=== PATIENT | female | born 1995 | race Caucasian/White ===

== ENCOUNTER 2017-03-18 16:45 | Emergency (ER) | payer BC ==
[2017-03-18] MEDS ORDERED: SODIUM CHLORIDE 1,000 ML IV STA (17:19)
[2017-03-18] MEDS ORDERED: ONDANSETRON 4 MG/2 ML VIAL IVPB ONE (17:19)
--- NOTE | 2017-03-18 17:28 | PDOC ---
History of Present Illness - General History Source: Patient, Old Records Exam Limitations: No Limitations - History of Present Illness Initial Comments: 03/18/17 18:14 The patient is a 21 year old female with a past medical history of epilepsy who presents to the emergency department today for further evaluation of epigastric pain since this afternoon. The patient describes her pain as sharp, stabbing in sensation mostly right sided and associated with vomiting and diarrhea. She reports 3 episodes of vomiting and 2 episodes of diarrhea. She denies any urinary difficulties She states that her LMP was 2-3 weeks ago. She denies a history of ovarian cyst, , or STDs. <Zeb Little - Last Filed: 03/18/17 18:35> - History of Present Illness Initial Comments: 03/18/17 18:39 Is ago exam: Alert oriented well-developed well-nourished no acute distress at rest, cheerful and cooperative Afebrile, vital signs normal No pallor or icterus. PERRLA, ENT clear Neck supple without bruit mass or nodes Chest clear with full breath sounds throughout bilaterally. No wheezes rales or rhonchi CV regular without murmur rub or gallop pulses full and symmetric no JVD or edema no bruits Abdomen nondistended. Bowel sounds are present and normal in character. Abdomen is soft and there is no organomegaly. However, there is mild to moderate tenderness that is diffuse over the entire right abdomen including right upper quadrant right mid abdomen and right lower quadrant. There is guarding in the right lower quadrant, equivocal rebound, and referred rebound. <Lester Norman - Last Filed: 03/20/17 21:02> - General Chief Complaint: Vomiting/Diarrhea Stated Complaint: VOMITNG & DIARRHEA Time Seen by Provider: 03/18/17 17:18 Past History <Zeb Little - Last Filed: 03/18/17 18:35> - Past Medical History Psychiatric Problems: Yes (ANXIETY) Seizures: Yes - Immunization History Immunization Up to Date: Yes - Suicide/Smoking/Psychosocial Hx Smoking Status: No Smoking History: Never smoked Years of Tobacco Use: 0 Have you smoked in the past 12 months: No Number of Cigarettes Smoked Daily: 0 Hx Alcohol Use: No Drug/Substance Use Hx: No Substance Use Type: None <Lester Norman - Last Filed: 03/20/17 21:02> - Past Medical History Allergies/Adverse Reactions: Allergies Allergy/AdvReac Type Severity Reaction Status Date / Time No Known Allergies Allergy Verified 07/12/14 23:54 Home Medications: Ambulatory Orders Lamotrigine [Lamictal] 200 mg PO DAILY 07/12/14 Norgestrel-Ethinyl Estradiol [Cryselle-28 Tablet] 1 each PO DAILY 07/12/14 Sertraline HCl [Zoloft] 200 mg PO HS 07/12/14 Clonazepam [Klonopin] 1 mg PO DAILY PRN 03/18/17 Diclofenac Sodium 50 mg PO TID PRN 03/18/17 Melatonin PO HS 03/18/17 Ondansetron [Zofran Odt -] 4 mg SL TID PRN #10 od.tablet 03/18/17 Review of Systems - Review of Systems Able to Perform ROS?: Yes Comments:: 03/18/17 18:14 CONSTITUTIONAL: Absent: fever, no chills, no fatigue EYES: Absent: visual changes ENT: Absent: ear pain, no sore throat CARDIOVASCULAR: Absent: chest pain, no palpitations RESPIRATORY: Absent: cough, no SOB GI: (+) Abdominal pain, nausea, vomiting, diarrhea Absent: constipation GENITOURINARY: Absent: dysuria, no frequency, no hematuria MUSCULOSKELETAL: Absent: back pain, no arthralgia, no myalgia SKIN: Absent: rash <Zeb Little - Last Filed: 03/18/17 18:35> *Physical Exam - Physical Exam Comments: 03/18/17 18:35 GENERAL: Well-appearing, well-nourished. No apparent distress. HEENT: Normocephalic, atraumatic. PERRL, EOM intact. CARDIOVASCULAR: Normal S1, S2. Regular rate and rhythm. PULMONARY: Clear to auscultation bilaterally. ABDOMEN: Soft, non-distended,(+)diffuse abdominal tenderness on palpation EXTREMITIES: Normal ROM in all four extremities. No gross deformities. SKIN: Warm, dry. No rash NEUROLOGICAL: No focal neurological deficits <Zeb Little - Last Filed: 03/18/17 18:35> ED Treatment Course - LABORATORY CBC & Chemistry Diagram: 03/18/17 19:05 03/18/17 19:05 <Lester Norman - Last Filed: 03/20/17 21:02> *DC/Admit/Observation/Transfer - Attestations Scribe Attestion: 03/18/17 18:14 Documentation prepared by Zeb Little, acting as medical sonographer for Lester Norman MD. <Zeb Little - Last Filed: 03/18/17 18:35> <Lester Norman - Last Filed: 03/20/17 21:02> Diagnosis at time of Disposition: Acute gastroenteritis - Discharge Dispostion Disposition: HOME Condition at time of disposition: Stable - Prescriptions Prescriptions: Ondansetron [Zofran Odt -] 4 mg SL TID PRN #10 od.tablet PRN Reason: Nausea And/Or Vomiting - Patient Instructions Printed Discharge Instructions: Viral Gastroenteritis Additional Instructions: Light diet; advance diet cautiously Zofran ODT 4 mg up to 3 times a day as needed for nausea/vomiting imodium 2mg after loose stool up to twice a day as discussed Return if you have persistent vomiting or increased abdominal pain Follow-up with your general doctor within the next 3-4 days
[2017-03-18 18:40] VITALS: BP 115/66; PULSE 75; TEMP 98.1; BMI 29.7
[2017-03-18] MEDS ORDERED: ONDANSETRON 4 MG/2 ML VIAL ONE (18:47)
[2017-03-18 19:22] LABS: HEMATOCRIT 40.5 % (32.4-45.2); HEMOGLOBIN 13.1 GM/dl (10.7-15.3); MCH 25.8 pg (25.7-33.7); MCHC 32.4 g/dl (32.0-36.0); MEAN CELL VOLUME 79.5 fl (80-96); MEAN PLT VOLUME 8.7 fl (7.5-11.1); PLATELET COUNT 270 K/MM3 (134-434); RBC 5.09 M/mm3 (3.60-5.2); RDW 13.8 % (11.6-15.6); WHITE BLOOD COUNT 7.8 K/mm3 (4.0-10.8)
[2017-03-18 19:32] LABS: ALBUMIN 4.4 g/dl (3.5-5.0); ALK PHOS 61 U/L (32-92); ANION GAP 8 (8-16); BILIRUBIN,TOTAL 0.4 mg/dl (0.2-1.0); BLOOD UREA NITROGEN 17 mg/dl (7-18); CALCIUM 9.5 mg/dl (8.4-10.2); CHLORIDE 107 mmol/L (98-107); CO2 21 mmol/L (22-28); CREATININE 0.7 mg/dl (0.6-1.3); GLUCOSE,RANDOM 107 mg/dl (74-106); POTASSIUM 4.1 mmol/L (3.5-5.1); SGOT/AST 22 U/L (10-42); SGPT/ALT 16 U/L (10-40); SODIUM 136 mmol/L (136-145); TOT PROT 7.6 g/dl (6.4-8.3)
[2017-03-18 19:38] LABS: PH,URINE 5.5 (4.5-8); URINE APPEARANCE Clear; URINE BILIRUBIN 1+ (NEGATIVE); URINE BLOOD Negative (NEGATIVE); URINE GLUCOSE (UA) Negative (NEGATIVE); URINE KETONE 2+ (NEGATIVE); URINE NITRITE Negative (NEGATIVE); URINE PROTEIN Trace (NEGATIVE); URINE UROBILINOGEN 0.2 (0.2-1.0)
[2017-03-18 19:41] LABS: URINE COLOR YELLOW
[2017-03-18 20:23] LABS: HCG,QUALITATIVE URINE NEGATIVE
--- NOTE | 2017-03-18 21:35 | PDOC ---
*Physical Exam - Vital Signs Last Vital Signs Temp Pulse Resp BP Pulse Ox 98.1 F 75 16 115/66 96 03/18/17 17:07 03/18/17 17:07 03/18/17 17:07 03/18/17 17:07 03/18/17 17:07 ED Treatment Course - LABORATORY CBC & Chemistry Diagram: 03/18/17 19:05 03/18/17 19:05 - ADDITIONAL ORDERS Additional order review: Laboratory Results 03/18/17 03/18/17 19:20 19:05 Sodium 136 Potassium 4.1 Chloride 107 Carbon Dioxide 21 L Anion Gap 8 BUN 17 Creatinine 0.7 Creat Clearance w eGFR > 60 Random Glucose 107 H Calcium 9.5 Total Bilirubin 0.4 AST 22 ALT 16 D Alkaline Phosphatase 61 Total Protein 7.6 Albumin 4.4 Urine Color Yellow Urine Appearance Clear Urine pH 5.5 Ur Specific [place] >= 1.030 H Urine Protein Trace Urine Glucose (UA) Negative Urine Ketones 2+ H Urine Blood Negative Urine Nitrite Negative Urine Bilirubin 1+ H Urine Urobilinogen 0.2 Ur Leukocyte Esterase Negative Urine HCG, Qual Negative 03/18/17 19:05 RBC 5.09 MCV 79.5 L MCHC 32.4 RDW 13.8 D MPV 8.7 Neutrophils % Box Truck Owner Operator Lymphocytes % Box Truck Owner Operator Monocytes % Box Truck Owner Operator Eosinophils % Box Truck Owner Operator Basophils % Box Truck Owner Operator - Medications Given in the ED: ED Medications Discontinued Medications Generic Name Dose Route Start Last Admin Trade Name Freq PRN Reason Stop Dose Admin Sodium Chloride 1,000 mls @ 1,000 mls/hr 03/18/17 17:19 03/18/17 19:05 Normal Saline - IV 03/18/17 18:18 1,000 mls/hr ASDIR STA Administration Ondansetron HCl 4 mg 03/18/17 17:19 03/18/17 19:05 Zofran Injection IVPB 03/18/17 17:20 4 mg ONCE ONE Administration Medical Decision Making - Medical Decision Making Care of this patient received from Dr. Gutierrez. New Abdominal/pelvic CT with contrast (oral and IV) performed evaluate for acute appendicitis in light of patient's right-sided tenderness. No evidence of SBO or acute appendicitis seen on CT as per preliminary results by Imaging process control engineer. Results discussed with the patient. On exam, the patient still has very mild tenderness on the right mid/lower quadrant of her abdomen; no further peritoneal signs present. Bowel sounds are hyperactive She is still having occasional intermittent sharp, cramping type pain throughout the abdomen. Patient will be given 4 mg of Imodium now for diarrhea (patient had 2 loose stools while in the ER; no further vomiting occurred while in the ER). She will be discharged with instructions to advance diet cautiously. She can also use [id number] Imodium 2 mg up to 2 times a day. [ Lowered dose of Imodium because of patient's Lamictal/Klonopin prn use] Zofran ODT 4 mg to be used up to 3 times a day prescribed and sent to her pharmacy Should return to the ER if she has persistent vomiting or increasing abdominal pain/fever *DC/Admit/Observation/Transfer Diagnosis at time of Disposition: Acute gastroenteritis - Discharge Dispostion Disposition: HOME Condition at time of disposition: Stable - Prescriptions Prescriptions: Ondansetron [Zofran Odt -] 4 mg SL TID PRN #10 od.tablet PRN Reason: Nausea And/Or Vomiting - Referrals - Patient Instructions Printed Discharge Instructions: Viral Gastroenteritis Additional Instructions: Light diet; advance diet cautiously Zofran ODT 4 mg up to 3 times a day as needed for nausea/vomiting imodium 2mg after loose stool up to twice a day as discussed Return if you have persistent vomiting or increased abdominal pain Follow-up with your general doctor within the next 3-4 days - Post Discharge Activity
[2017-03-18 21:42] LABS: PLATELET ESTIMATE ADEQUATE
[2017-03-18] MEDS ORDERED: KETOROLAC TROMETHAMINE 30 MG/1 ML VIAL IVPUSH ONE (22:54)
[2017-03-18] MEDS ORDERED: KETOROLAC TROMETHAMINE 30 MG/1 ML VIAL ONE (22:55)
[2017-03-18] MEDS ORDERED: LOPERAMIDE HCL 2 MG CAPSULE PO ONE (23:34)
[2017-03-18] MEDS ORDERED: LOPERAMIDE HCL 2 MG CAPSULE ONE ×2 (23:45)
== END 2017-03-18 23:50 | disposition home or self-care (01) ==
LOC: FER 16:45
PROC: 3E033GC Introduction of Other Therapeutic Substance into Peripheral Vein, Percutaneous Approach (ICD-10-PCS; principal; 2017-03-18)
PROC: 3E0333Z Introduction of Anti-inflammatory into Peripheral Vein, Percutaneous Approach (ICD-10-PCS; 2017-03-18)
PROC: 3E0337Z Introduction of Electrolytic and Water Balance Substance into Peripheral Vein, Percutaneous Approach (ICD-10-PCS; 2017-03-18)
DX: K52.9 Noninfective gastroenteritis and colitis, unspecified (principal)
CPT/HCPCS: 36415; 74177-TC; 80053; 81003; 84703; 85025; 99281-25

== ENCOUNTER 2019-04-23 18:15 | Emergency (ER) | payer BC ==
[2019-04-23 18:33] VITALS: BP 118/76; PULSE 80; TEMP 98.5; BMI 28.1
[2019-04-23] MEDS ORDERED: SODIUM CHLORIDE 0.9% 500 ML INFUS.BAG IV ONE (19:23)
[2019-04-23] MEDS ORDERED: ACETAMINOPHEN 325 MG TABLET (FP) PO ONE (19:23)
--- NOTE | 2019-04-23 20:01 | PDOC ---
Documentation entered by Sarah White SCRIBE, acting as scribe for Ingrid Titus MD. Ingrid Titus MD: This documentation has been prepared by the Christopher dinh Xhesika, SCRIBE, under my direction and personally reviewed by me in its entirety. I confirm that the documentation accurately reflects all work, treatment, procedures, and medical decision making performed by me. History of Present Illness - General Chief Complaint: Seizure Stated Complaint: SEIZURE AT WORK AROUND 5 PM Time Seen by Provider: 04/23/19 19:22 History Source: Patient Exam Limitations: No Limitations - History of Present Illness Initial Comments: 04/23/19 19:32 HPI The patient is a 23 year old female with a significant PMH of epilepsy ( complaint with her lamictal- has not had a seizure in 4 years), anxiety, depression and anemia who presents to the ED with R sided headache and dizziness s/p seizure at 5pm. The patient states she was at work, sitting at her desk, went to the backroom, felt confused and glitchy after the event. Pt does not recall the incident but video footage at her job shows the patient fell off the table, hit her head and had generalized tonic clonic seizure activity for approximately 3 minutes, then was confused/postictal x 2 minutes before coming to consciousness. she also c/o left knee pain with hyperextension , but able to ambulate. also has mild pain to the right lateral thigh with overlying bruising, but able to walk. Pt states she did not eat or drink today, only coffee and has been endorsing family stressors (with her adopted sister meeting her biological family this week via phone). The patient reports 2-3 days of lower abdominal pain, with her LMP approx 2 weeks ago. Pt states she has an IUD and has regular menses that last 1 week. Denies fever, chills, chest pain, SOB, palpitation, weakness, N, V, D, bladder and bowel problems, focal weakness/paresthesias, leg swelling/pain, rash, gait instability. No sick contacts or travel. No new changes in medications. No suspicious food intake Allergies: None PSH: none PMH: anxiety, depression, anemia, epilepsy Social history: Lives with family. No tobacco, ETOH or drug use. Meds: as documented in EMR Family history: noncontributory ROS: GENERAL/CONSTITUTIONAL: No fever or chills. No weakness. no sweats. HEAD, EYES, EARS, NOSE AND THROAT: No change in vision or hearing. No ear pain or discharge. No sore throat or mouth pain. No difficulty swallowing. +nasal congestion. CARDIOVASCULAR: No chest pain or palpitations, syncope or edema. RESPIRATORY: No SOB, cough GASTROINTESTINAL No nausea/vomiting. No diarrhea or constipation. GENITOURINARY: No hematuria, dysuria, frequency, urgency or other changes. MUSCULOSKELETAL: +thigh pain and bruising, +knee pain. No decreased range of motion. No neck or back pain. SKIN: No rash or lesions. No wounds. +bruising. NEUROLOGIC: alert and oriented appropriately. + Right sided headache. + dizziness. No AMS, lethargy, or change in strength/sensation. No gait instability. HEMATOLOGIC/LYMPHATIC: +anemia, no easy bruising/bleeding, or history of blood clots. No swollen lymph nodes ALLERGIC/IMMUNOLOGIC: No allergies PSYCH: no anxiety/depression All other systems reviewed and negative, or as documented in HPI. Physical Exam: General: Well appearing, awake and alert, NAD. HEENT: NCAT, PERRL, EOMI, clear conjunctiva, anicteric, moist mucous membranes , clear oropharynx, no oral lesions.. dentition intact. normal phonation. Neck: neck supple, FROM, no midline C spine tenderness Resp: CTAB, normal and even respirations, no respiratory distress CVS: RRR, no murmurs, 2+ peripheral pulses throughout, no peripheral edema Abdomen: soft, NTND, no rebound or guarding. no charles's and neg mcburney's point tenderness. Back: nontender, normal inspection and ROM] MSK: no edema, GEORGES x4, ROM intact. No clubbing or cyanosis. normal bulk and tone. Extremities: no calf tenderness. +left anterior knee TTP, no joint laxity, no palp effusion, FROM. +mild ttp to the right anterolateral thigh, with overlying mild ecchymosis. Neuro: alert, oriented appropriately; no focal neurologic deficits, 5/5 lan/wan engineer strength b/l, 5/5 prox and distal strength, SILT in all extrem. crosses legs, gait stable. speech clear. Skin: warm and well perfused, cap refill <2 sec, normal color, +mild ecchymosis to the right anterolateral thigh. 04/23/19 20:01 04/23/19 20:22 04/23/19 20:27 04/23/19 20:41 04/23/19 20:43 Past History - Past Medical History Allergies/Adverse Reactions: Allergies Allergy/AdvReac Type Severity Reaction Status Date / Time No Known Allergies Allergy Verified 04/23/19 18:17 Home Medications: Ambulatory Orders Lamotrigine [Lamictal] 800 mg PO DAILY 07/12/14 Sertraline HCl [Zoloft] 200 mg PO HS 07/12/14 Clonazepam [Klonopin] 1 mg PO DAILY PRN 03/18/17 Anemia: Yes COPD: No Psychiatric Problems: Yes (ANXIETY DEPRESSION) Seizures: Yes - Immunization History Immunization Up to Date: Yes - Psycho Social/Smoking Cessation Hx Smoking Status: No Smoking History: Never smoked Years of Tobacco Use: 0 Have you smoked in the past 12 months: No Number of Cigarettes Smoked Daily: 0 Information on smoking cessation initiated: No Hx Alcohol Use: Yes (OCCASSIONAL) Drug/Substance Use Hx: No Substance Use Type: None *Physical Exam - Vital Signs Last Vital Signs Temp Pulse Resp BP Pulse Ox 98.5 F 80 16 118/76 98 04/23/19 18:16 04/23/19 18:16 04/23/19 18:16 04/23/19 18:16 04/23/19 18:16 Heart Score/ECG Review #1 ECG reviewed & interpreted by me at: 18:35 General ECG Interpretation: Sinus Rhythm, Normal Rate, Normal Intervals 04/23/19 20:28 EKG normal sinus rhythm 70 bpm, no interval abnormalities, narrow QRS, ST and T wave segments and morphology normal ED Treatment Course - LABORATORY CBC & Chemistry Diagram: 04/23/19 19:15 04/23/19 19:15 - RADIOLOGY Radiology Studies Ordered: Category Date Time Status HEAD CT WITHOUT CONTRAST [CT] Stat CT Scan 04/23/19 19:22 Taken Medical Decision Making - Medical Decision Making 04/23/19 20:26 Vital Signs Temp Pulse Resp BP Pulse Ox 98.5 F 80 16 118/76 98 04/23/19 18:16 04/23/19 18:16 04/23/19 18:16 04/23/19 18:16 04/23/19 18:16 VS reviewed wnl. no fever, nontoxic, breathing comfortably, HD appropriate. pt had seizure episode today, h/o epilepsy on lamictal and compliant grand mal is typical for her, last seizure was 4 years ago. had head trauma, so CT H indicated to eval for injuries/bleed now neuro intact, no focal deficits, speech clear, gait stable no infectious etiology EKG NSR, no ischemic changes labs and lytes with no anemia. ag noted, likely from lactic acid/sz activity, no indication to check lactic acid, as pt had reliable history of having sz episode today which can cause elevation. CT Head neg for acute pathology/bleed or mass 04/23/19 21:07 Knee x-rays done, no evidence of patella fracture, no acute knee pathology or fractures noted, no knee dislocation, no fractures noted to the tibia plateau, proximal tibia and fibula and femur in the affected area normal joint alignment no xrays indicated for the thigh, as min tenderness there, +soft tissue ecchymosis c/w contusion. minimize stressors hydration adequate sleep and meals recommended. Pt to be discharged in stable condition. Patient and family made aware of clinical impression, treatment recommendations and disposition plan, return precautions discussed (including but not limited to new or persistent/worsening symptoms, pain, fevers, or signs of infection, chest pain, respiratory distress , inability to tolerate oral intake, dehydration, syncope, or neurologic changes ). Follow up with PMD and/or neuro specialist as recommended, follow up information provided, take medications as instructed for duration of time. continue with supportive care, avoid triggers and precipitants. All questions answered to patient's satisfaction and expressed understanding and comfort with this. At the time of discharge, the patient is alert, clinically improved, tolerating po and verbalizes understanding of instructions, satisfied with the care received and felt comfortable with the plan. Patient does not suffer from an acute life-threatening medical condition at this time and is safe for outpatient follow-up. 04/23/19 21:10 Discharge - Discharge Information Problems reviewed: Yes Clinical Impression/Diagnosis: Seizure Contusion of thigh, right Qualifiers: Encounter type: initial encounter Qualified Code(s): S70.11XA - Contusion of right thigh, initial encounter Knee pain Qualifiers: Chronicity: acute Laterality: left Qualified Code(s): M25.562 - Pain in left knee Condition: Improved Disposition: HOME - Admission No - Follow up/Referral Referrals: [facility] [place] [facility] [place] [Provider Group] [facility] [Provider Group] Dre Ronquillo MD [Staff Physician] - Juan Alberto Quiñones MD [Staff Physician] - - Patient Discharge Instructions Patient Printed Discharge Instructions: DI for Seizure Disorder -- Adult, DI for Contusion, DI for Knee Pain Additional Instructions: 1) Please follow-up with your primary care doctor in the next 1-2 days. Please call tomorrow for for any urgent issues. 2) You were given a copy of the tests performed today. Please bring the results with you and review them with your primary care doctor. Your laboratory / imaging results were normal, 3) If you have any worsening of symptoms or any other concerns please return to the ED immediately. Return if worsening symptoms including fevers, headache, vomiting, visual or hearing disturbances, abdominal pain, chest pain, shortness of breath, syncope, dehydration, inability to take things by mouth/vomiting, altered mental status, or worsening concerning symptoms. 4) Please continue taking your home medications as directed. take your lamictal as directed daily. Stay well hydrated and rest adequately. Make an appointment. If you cannot follow-up with your primary care doctor please return to the ED minimize stressors, get your sleep and rest and maintain regular meals. You most likely have musculoskeletal strain/sprain of your left knee and contusion of your right thigh. Avoid heavy lifting or strenuous activity to minimize further injury This should heal over the next 3-5 days. RICE rest ice elevate the affected area Rest, Ice (20 minutes at a time, 3 times a day), Compression (SUNDAR wrap or splint ), Elevation (above the heart). Apply ice to the area for 10 minutes every 2 hours for the first 2 days after the injury to reduce swelling. continue with range of motion exercises, as this will facilitate the healing process; avoid being bed bound and immobile. If you have any worsening of symptoms, including severe pain/swelling/redness/ numbness/changes in sensation/weakness/paralysis or any other concerns please return to the Emergency Department immediately. You were given a copy of the results from any tests performed today in the Emergency Department which have results available. Show these to your doctor(s). Some of the tests we sent may not have results yet so please call or have your doctor call the Emergency Department to follow up on all results. Please continue taking your home medications as directed. Do not use alcohol when taking any medication ( especially antibiotics, tylenol or other pain medication) unless you check with the doctor or pharmacist. -May take ibuprofen 400-600mg and/or tylenol 650 to 975 mg every 6 hours as needed for mild to moderate pain, available over the counter. This does not require narcotics, as it will precipitate injuries and falls. Please follow up with your primary doctor(s) within the next 1 week, but seek medical care sooner if your symptoms persist or worsen. Please call as soon as possible for an appointment. If you cannot follow up with your doctor please return to the Emergency Department for any urgent issues. Follow up with your primary care physician in 1 week if symptoms persist, or with orthopedics specialists if needed, referrals have been provided. - Post Discharge Activity Work/Back to School Note: Back to Work
[2019-04-23] MEDS ORDERED: ACETAMINOPHEN 325 MG TABLET (FP) ONE (20:04)
[2019-04-23 20:13] LABS: BASO % 0.3 % (0-2.0); EOS % 1.2 % (0-4.5); HEMATOCRIT 39.5 % (32.4-45.2); LYMPH % 16.9 % (8-40); MCH 26.6 pg (25.7-33.7); MCHC 32.9 g/dl (32.0-36.0); MEAN PLT VOLUME 7.8 fl (7.5-11.1); MONO % 3.2 % (3.8-10.2); NEUT % 78.4 % (42.8-82.8); PLATELET COUNT 285 K/MM3 (134-434); RBC 4.88 M/mm3 (3.60-5.2); RDW 13.2 % (11.6-15.6); WHITE BLOOD COUNT 8.2 K/mm3 (4.0-10.8)
[2019-04-23 20:30] LABS: EPITHELIAL CELLS FEW /hpf
[2019-04-23 20:31] LABS: ALBUMIN 4.6 g/dl (3.4-5.0); BILIRUBIN,TOTAL 0.4 mg/dl (0.2-1); CALCIUM 9.8 mg/dl (8.5-10); CREATININE 0.7 mg/dl (0.55-1.3); POTASSIUM 4.1 mmol/L (3.5-5.1); TOT PROT 7.6 g/dl (6.4-8.2)
--- NOTE | 2019-04-24 09:22 | EKG ---
Test Reason : Blood Pressure : / mmHG Vent. Rate : 070 BPM Atrial Rate : 070 BPM P-R Int : 156 ms QRS Dur : 110 ms QT Int : 390 ms P-R-T Axes : 044 029 031 degrees QTc Int : 421 ms POOR DATA QUALITY, INTERPRETATION MAY BE ADVERSELY AFFECTED NORMAL SINUS RHYTHM INCOMPLETE RIGHT BUNDLE BRANCH BLOCK ANTERIOR INFARCT , AGE UNDETERMINED ABNORMAL ECG NO PREVIOUS ECGS AVAILABLE Confirmed by Bill An MD ([id number]) on 04/24/2019 9:21:47 AM Referred By: Confirmed By:Bill An MD
== END 2019-04-23 21:23 | disposition home or self-care (01) ==
LOC: FER 18:15
DX: R56.9 Unspecified convulsions (principal); S70.11XA Contusion of right thigh, initial encounter; M25.562 Pain in left knee; F41.8 Other specified anxiety disorders; D64.9 Anemia, unspecified
CPT/HCPCS: 36415; 70450-TC; 73562-TC-LT-FY; 80053; 81003; 81015; 84703; 85025; 93005; 99285-25

== ENCOUNTER 2019-10-14 15:44 | Emergency (ER) | payer BC ==
[2019-10-14 15:53] VITALS: BP 118/55; PULSE 80; TEMP 98.2; BMI 28.1
[2019-10-14 16:05] LABS: HCG,QUALITATIVE URINE Negative
[2019-10-14] MEDS ORDERED: SODIUM CHLORIDE 1,000 ML IV STA (16:28)
[2019-10-14] MEDS ORDERED: ONDANSETRON 4 MG/2 ML VIAL IVPB ONE (16:28)
[2019-10-14] MEDS ORDERED: ONDANSETRON 4 MG/2 ML VIAL ONE (17:00)
[2019-10-14 17:11] LABS: BASO % 0.3 % (0-2.0); EOS % 1.3 % (0-4.5); HEMOGLOBIN 13.3 GM/dl (10.7-15.3); MCH 28.1 pg (25.7-33.7); MEAN CELL VOLUME 82.4 fl (80-96); MEAN PLT VOLUME 8.4 fl (7.5-11.1); MONO % 2.6 % (3.8-10.2); NEUT % 89.8 % (42.8-82.8); PLATELET COUNT 235 K/MM3 (134-434); RBC 4.74 M/mm3 (3.60-5.2); RDW 14.3 % (11.6-15.6); WHITE BLOOD COUNT 6.5 K/mm3 (4.0-10.8)
[2019-10-14 17:13] LABS: ALBUMIN 4.8 g/dl (3.4-5.0); BILIRUBIN,TOTAL 0.7 mg/dl (0.2-1); CALCIUM 9.4 mg/dl (8.5-10); CREATININE 0.7 mg/dl (0.55-1.3); TOT PROT 7.8 g/dl (6.4-8.2)
--- NOTE | 2019-10-14 18:03 | PDOC ---
Documentation entered by Anam Salvador SCRIBE, acting as scribe for Lester Norman MD. Lester Norman MD: This documentation has been prepared by the Madeleine dinh Angel, SCRIBE, under my direction and personally reviewed by me in its entirety. I confirm that the documentation accurately reflects all work, treatment, procedures, and medical decision making performed by me. History of Present Illness - General Chief Complaint: Vomiting/Diarrhea Stated Complaint: N/V/D Time Seen by Provider: 10/14/19 15:51 History Source: Patient Exam Limitations: No Limitations - History of Present Illness Initial Comments: 10/14/19 16:38 The patient is a 24 year old female who presents to the ED complaining of intermittent abdominal cramping and N/V/D since this morning. The patient states she woke up this morning lethargic and dehydrated. The patient has had no power and has been sleeping in a hot room with no air circulation. The patient reports 3 episodes of NBNB vomiting (which included her prescribed medication) and diarrhea. She has been unable to keep water down. The patient was recently told she might be lactose intolerant and notes eating ice cream yesterday but she has never had pain like this, only diarrhea. The patient notes her LMP being either last week or the week before that. The patient denies chest pain, fever/chills, sick contacts or urinary symptoms. Allergies: NKDA Past medical history: Epilepsy (complaint with her lamictal), anxiety, depression and anemia Medications: Lamictal 800mg daily, Zoloft 200mg, Klonopin 1mg. PCP: Kelvin Galvin 10/14/19 18:01 Physical exam: Alert and oriented well-developed well-nourished no acute distress cooperative Afebrile, vital signs normal No pallor or icterus. HEENT normal Neck supple without bruit mass or nodes Lungs clear CV regular without murmur rub or gallop Abdomen nondistended. Bowel sounds normal. Soft without mass tenderness organomegaly Extremities no CCE Skin clear, no rash, adequate turgor and wet mucous membranes Neurological intact Impression: Probable mild gastroenteritis, possibly compounded by food sensitivity, anxiety Plan: Symptomatic treatment, observation. Past History - Medical History Allergies/Adverse Reactions: Allergies Allergy/AdvReac Type Severity Reaction Status Date / Time No Known Allergies Allergy Verified 10/14/19 15:44 Home Medications: Ambulatory Orders Lamotrigine [Lamictal] 800 mg PO DAILY 07/12/14 Sertraline HCl [Zoloft] 200 mg PO HS 07/12/14 Clonazepam [Klonopin] 1 mg PO DAILY PRN 03/18/17 Ondansetron [Zofran *Odt*] 4 mg SL TID PRN #10 od.tablet 10/14/19 Anemia: Yes COPD: No Psychiatric Problems: Yes (ANXIETY DEPRESSION) Seizures: Yes - Reproductive History Is Patient Now?: (DENIES) - Immunization History Immunization Up to Date: Yes - Psycho-Social/Smoking History Smoking Status: No Smoking History: Never smoked Years of Tobacco Use: 0 Have you smoked in the past 12 months: No Number of Cigarettes Smoked Daily: 0 - Substance Abuse Hx (Audit-C & DAST Scrn) How often the patient has a drink containing alcohol: Monthly or less Number of drinks the patient has on a typical day: 1 or 2 How often the patient has six or more drinks on one occasion: Never Score: In Men: 4 or > Positive; In Women: 3 or > Positive: 1 Screen Result (Pos requires Nsg. Audit-10AR): Negative In the last yr the pt used illegal drug/Rx for NonMed reason: Yes Score: Yes response is considered Positive: 1 Screen Result (Positive result requires Nsg. DAST-10): Positive Review of Systems - Review of Systems Able to Perform ROS?: Yes Comments:: 10/14/19 16:38 GENERAL/CONSTITUTIONAL: No fever or chills. No weakness. HEAD, EYES, EARS, NOSE AND THROAT: No change in vision. No ear pain or discharge. No sore throat. CARDIOVASCULAR: No chest pain or shortness of breath. RESPIRATORY: No cough, wheezing, or hemoptysis. GASTROINTESTINAL: + Abdominal pain. +Nausea, vomiting and diarrhea. No constipation. GENITOURINARY: No dysuria, frequency, or change in urination. MUSCULOSKELETAL: No joint or muscle swelling or pain. No neck or back pain. SKIN: No rash NEUROLOGIC: No headache, vertigo, loss of consciousness, or change in strength/sensation. ENDOCRINE: No increased thirst. No abnormal weight change. HEMATOLOGIC/LYMPHATIC: No anemia, easy bleeding, or history of blood clots. ALLERGIC/IMMUNOLOGIC: No hives or skin allergy. *Physical Exam - Vital Signs Last Vital Signs Temp Pulse Resp BP Pulse Ox 98.2 F 80 16 118/55 L 98 10/14/19 15:44 10/14/19 15:44 10/14/19 15:44 10/14/19 15:44 10/14/19 15:44 ED Treatment Course - LABORATORY CBC & Chemistry Diagram: 10/14/19 16:45 10/14/19 16:45 - ADDITIONAL ORDERS Additional order review: Laboratory Results 10/14/19 15:49 Urine Color Yellow Urine Appearance Clear Urine pH 6.0 Urine Protein Negative Urine Glucose (UA) Negative Urine Ketones Trace Urine Blood Negative Urine Nitrite Negative Urine Bilirubin Negative Urine Urobilinogen 0.2 Ur Leukocyte Esterase Negative Urine HCG, Qual Negative Medical Decision Making - Medical Decision Making 10/14/19 16:28 Crampy abdominal pain, no pain at present, nausea with vomiting x3, diarrhea x3, no hematemesis melena or bloody stool. No prior serious abdominal disease or surgery. Abdominal exam benign. No masses tenderness organomegaly. 10/14/19 17:41 CBC, chemistries, urinalysis show no significant abnormalities. Patient feels much better after receiving intravenous fluids and Zofran. No further nausea or abdominal pain/cramping. Tolerating sips of water p.o. 10/14/19 18:03 Discharged with friend, completely ambulatory without pain or other distress, to follow-up with her doctor. Zofran prescribed for nausea. Discharge - Discharge Information Problems reviewed: Yes Clinical Impression/Diagnosis: Acute gastroenteritis Condition: Improved Disposition: HOME - Admission No - Additional Discharge Information Prescriptions: Ondansetron [Zofran *Odt*] 4 mg SL TID PRN #10 od.tablet PRN Reason: Nausea And/Or Vomiting - Follow up/Referral Referrals: Kelvin Galvin MD [Primary Care Provider] - 2 Days - Patient Discharge Instructions Patient Printed Discharge Instructions: DI for Viral Gastroenteritis -- Adult - Post Discharge Activity
[2019-10-14] MEDS ORDERED: ONDANSETRON *ODT* 4 MG TABLET ONE (18:07)
[2019-10-14] MEDS ORDERED: ONDANSETRON *ODT* 4 MG TABLET SL ONE (18:07)
== END 2019-10-14 18:44 | disposition home or self-care (01) ==
LOC: FER 15:44
PROC: 3E0337Z Introduction of Electrolytic and Water Balance Substance into Peripheral Vein, Percutaneous Approach (ICD-10-PCS; principal; 2019-10-14)
PROC: 3E033GC Introduction of Other Therapeutic Substance into Peripheral Vein, Percutaneous Approach (ICD-10-PCS; principal; 2019-10-14)
DX: K52.9 Noninfective gastroenteritis and colitis, unspecified (principal)
CPT/HCPCS: 36415; 80053; 81003; 84703; 85025; 99284-25; Q0162

== ENCOUNTER 2020-01-24 10:49 | Emergency (ER) | payer BC | END 2020-01-24 11:17 | disposition home or self-care (01) | LOC: JVIRT 10:49 | DX: Z03.818 Encounter for observation for suspected exposure to other biological agents ruled out (principal) | CPT/HCPCS: C9803; G2012-GT; U0003 ==